=== PATIENT | male | born 2000 ===

== ENCOUNTER 2020-06-11 23:23 | Emergency (ER) | payer BC ==
[~2020-06-11] VITALS: Ht 175.3 cm; Wt 60.0 kg
[2020-06-11 23:30] VITALS: TEMP 97.8
[2020-06-12] MEDS ORDERED: NORCO 325 MG-7.1 TAB PO (00:25)
[2020-06-12 00:49] VITALS: BP 114/73; PULSE 85
== END 2020-06-12 00:49 | disposition home or self-care (01) ==
LOC: COL.ER 23:23
DX: S43.101A Unspecified dislocation of right acromioclavicular joint, initial encounter (principal); W19.XXXA Unspecified fall, initial encounter; Y93.39 Activity, other involving climbing, rappelling and jumping off; Y92.410 Unspecified street and highway as the place of occurrence of the external cause
CPT/HCPCS: J1885